=== PATIENT | female | born 1995 | race Caucasian/White ===

== ENCOUNTER 2022-11-19 07:44 | Inpatient (IN) | payer OTHER ==
[~2022-11-19] VITALS: Ht 152.4 cm; Wt 68.0 kg
[2022-11-19] MEDS ORDERED: IRON325 MG PO (08:12)
[2022-11-19] MEDS ORDERED: PRENATAL + DHA1 EAC1 PO (08:12)
== END 2022-11-21 10:51 | disposition home or self-care (01) | DRG 805 ==
LOC: LDR 07:44 → OB/GYN 07:44
PROVIDERS: ADMIT Obstetrics & Gynecology Maternal & Fetal Medicine; ATTEND Obstetrics & Gynecology Maternal & Fetal Medicine
PROC: 10E0XZZ Delivery of Products of Conception, External Approach (ICD-10-PCS; principal; 2022-11-19)
PROC: 0KQM0ZZ Repair Perineum Muscle, Open Approach (ICD-10-PCS; 2022-11-19)
PROC: 4A1HXCZ Monitoring of Products of Conception, Cardiac Rate, External Approach (ICD-10-PCS; 2022-11-19)
DX: O70.1 Second degree perineal laceration during delivery (principal); O60.14X0 Preterm labor third trimester with preterm delivery third trimester, not applicable or unspecified; Z37.0 Single live birth; Z3A.36 36 weeks gestation of pregnancy; Z20.822 Contact with and (suspected) exposure to COVID-19